=== PATIENT | female | born 1945 | race African-American/Black ===

== ENCOUNTER 2019-11-10 04:05 | Emergency (ER) | payer MEDICARE ==
[~2019-11-10] VITALS: Ht 165.1 cm; Wt 65.8 kg
[2019-11-10] MEDS ORDERED: CALCIUM CHLORIDE 1 GM/10 ML DISP.SYRIN IV ONE (04:07)
[2019-11-10] MEDS ORDERED: EPINEPHRINE 1:10,000 1 MG/10 ML DISP.SYRIN IV ONE ×2 (04:07→06:00)
[2019-11-10] MEDS ORDERED: SODIUM BICARBONATE 8.4% 50 MEQ/50 ML DISP.SYRIN IV ONE (04:07)
[2019-11-10] MEDS ORDERED: ETOMIDATE 20 MG/10 ML VIAL IV ONE ×2 (04:07→06:00)
[2019-11-10] MEDS ORDERED: ROCURONIUM BROMIDE 50 MG/5 ML VIAL IV ONE (04:07)
[2019-11-10] MEDS ORDERED: NOREPINEPHRINE BITARTRATE 4 MG/4 ML VIAL IV ONE (04:23)
[2019-11-10] MEDS ORDERED: EPINEPHRINE 1:10,000 1 MG/10 ML DISP.SYRIN ONE (04:47)
[2019-11-10] MEDS ORDERED: CALCIUM CHLORIDE 1 GM/10 ML DISP.SYRIN IVP ONE (04:56)
--- NOTE | 2019-11-10 05:23 | NUR ---
Called [facility]. Spoke with Mohinder. Will call back in 1 hr. considering for donation Ticket #: [id number]
[2019-11-10] MEDS ORDERED: [UNRECOGNIZED DRUG - REMARK] (05:47)
[2019-11-10] MEDS ORDERED: [UNRECOGNIZED DRUG - REMARK] (05:47)
--- NOTE | 2019-11-10 05:54 | NUR ---
PT ARRIVED AT 0404 CARRIED BY SON WITH FAMILY PRESENT YO EMERGENCY UNRESPONSIVE/OBTUNDED/ASHEN/COLD AND CLAMMY WITH SLOW AND VERY SHALLOW BREATHS.. PT TAKEN DIRECTLY TO [facility] 1B PLACED ON MONITOR WHICH SHOWED AGONAL RHYTHM, PO2=40'S TO UNDETECTIBLE, PULSE FAINT. RT CALLED PT PLACED ON 100% OXYGEN NRB MASK, AT 0418 25MM-15G I/O PLACED PER DR ELLISON TO BELOW LEFT KNEE. 1 L 0.9 NS STARTED AT 0418. WITH RT'S PRESENT PT RECEIVED 20 MG ETOMIDATE AT 0419 AND 100MG ROCURIUM AT 0419 TO I/0 SITE. PT INTUBATED WITH 7.[address] ELLISON AT 0422. CPR BEBAN AT 0423. PT WAS ADMINISTERED 1 MG EPI RAPID PUSH FOLLOWED BY 10 ML 0.9 FLUSH AT 0429/0431/0434/0438/0447. 1 AMP 10% CALCIUM GLUCANATE 1GM IN 10ML I/O PUSH AT 0435 AND 0454. 1 AMP 8.4% BICARB I/O PUSH AT 0436 AND 0455. PT HAD A SLIGHT/VERY FAINT PULSE CHECK THAT LASTED SECONDS AT 0430 AND NEGATIVE/NO PULSES WERE CHECKED AT 0435/0440/0442/0446/0450/0455/0500. PT PRONOUNED BY DR ELLISON AT 0500. FAMILY WAS PRESENT DURING THE CODE.
[2019-11-10] MEDS ORDERED: CALCIUM GLUCONATE IV 2 GM in IV DEXTROSE 5% 250 ML IV ONE (06:00)
[2019-11-10] MEDS ORDERED: SODIUM BICARBONATE 8.4% 50 MEQ/50 ML VIAL IV ONE (06:00)
--- NOTE | 2019-11-10 06:21 | NUR ---
PHARMACY NOTE: TIMES AND ROUTES OF MEDICATIONS ARE IN NURSING NOTES. DR ELLISON WAS UNABLE TO PLACE ROCURIUM ORDER BECAUSE HE HAD THE ONLY OPTION FOR ADMITION WAS A DRIP.
--- NOTE | 2019-11-10 06:26 | NUR ---
PLEASE SEE PRINTED MONITOR STRIPS.
--- NOTE | 2019-11-10 06:40 | NUR ---
Followed up with [facility], spoke with TL. stated okay to call performance analyst's office. stated will call back in 1 hr for update.
--- NOTE | 2019-11-10 06:51 | NUR ---
CALLED [facility] SPOKE TO TALI, WHOM STATED PT WAS NOT A CORONERS CASE BECAUSE THE FAMILY STATED THAT THE PMD CALLED MD FERNANDA GOLD AT [phone] WILL SIGN CERTIFICATE.
--- NOTE | 2019-11-10 07:19 | NUR ---
verbal report given to incoming nurse Nneka. Pt's body unable to move because family requested to see the body in ER instead of morgue. [employer] notified. Charge nurse Suzy notified. pending [facility] call back.
--- NOTE | 2019-11-10 07:44 | NUR ---
After multiple visits by several family members to patient's bedside in ER bed 1B & due to COVID-19 pandemic, decision was made to send the body now to hospital [facility] per nursing needle process felt goods supervisor. Post-mortem care was done. IDs are on toe & on the body bag. Patient's body was moved to [facility] by [facility] needle process felt goods supervisor, [employer].
--- NOTE | 2019-11-10 08:02 | NUR ---
More family members are seen in front of ER registration. [employer] senior officer notified the family members that the body is now in the hospital [facility] & further requests must be approved by nursing supervisor [employer].
== END 2019-11-10 07:44 | disposition expired ==
LOC: EDBD 04:06 → ER 04:06
DX: I46.9 Cardiac arrest, cause unspecified (principal)
CPT/HCPCS: 31500; 36680; 92950; 99285; J0171; J3490 ×5; 70030-TC